=== PATIENT | female | born 1965 | race Caucasian/White ===

== ENCOUNTER → 2023-12-16 13:43 | Outpatient (REF) | payer OTHER, SELFPAY | LOC: WDC 13:43 | PROVIDERS: ATTENDING PHYSICIAN Family Medicine | DX: Z12.31 Encounter for screening mammogram for malignant neoplasm of breast (principal) | CPT/HCPCS: 77063; 77067 ==

== ENCOUNTER 2024-09-09 13:39 | Emergency (ER) | payer OTHER, SELFPAY ==
[2024-09-09 13:39] VITALS: BMI 21.6
[2024-09-09 13:45] VITALS: BP 154/89
[2024-09-09 14:05] LABS: % Basophils 0.9 % (0-2); % Eosinophils 1.8 % (0-6); % Immature Granulocytes 0.3 % (0-0.5); % Monocytes 9.4 % (1.7-9.3); % Neutrophils 51.6 % (42.2-75.2); Absolute Eosinophils 0.1 10^3/uL (0-0.7); Absolute Lymphocytes 1.2 10^3/uL (1.2-3.4); Absolute Monocytes 0.3 10^3/uL (0.1-0.6); Absolute Neutrophils 1.8 10^3/uL (1.4-6.5); Hematocrit 37.3 % (37.0-47.0); Hemoglobin 13.4 g/dL (12.0-16.0); Mean Corp Hgb Conc. 35.9 g/dL (33.0-37.0); Mean Corpuscular Hgb 32.1 pg (27.0-31.0); Mean Corpuscular Volume 89.2 fL (81.0-99.0); Mean Platelet Volume 9.9 fL (7.4-10.4); Nucleated Red Blood Cells % 0 %; Platelet Count 151 10^3/uL (130-400); Red Blood Cell Count 4.18 10^6/uL (4.20-5.40); Red Cell Dist. Width 13.6 % (11.5-14.5); White Blood Cell Count 3.4 10^3/uL (4.8-10.8)
[2024-09-09 14:11] LABS: ALT (SGPT) 298 U/L (0-35); AST (SGOT) 327 U/L (14-36); Albumin 3.8 g/dl (3.5-5.0); Alkaline Phosphatase 130 U/L (38-126); Blood Urea Nitrogen 9 mg/dl (7-17); Calcium 8.8 mg/dl (8.4-10.2); Carbon Dioxide 25 mmol/L (22-30); Chloride 100 mmol/L (98-107); Glucose 121 mg/dl (70-99); Lipase 71 U/L (23-300); Potassium 3.8 mmol/L (3.5-5.1); Sodium 133 mmol/L (135-145); Total Bilirubin 2.4 mg/dl (0.2-1.3); eGFR > 60.00
[2024-09-09 15:41] LABS: Direct Bilirubin 1.3 mg/dl (0.0-0.4)
[2024-09-09 16:00] VITALS: BP 134/78
--- NOTE | 2024-09-09 16:10 | ED.GENMED ---
Addendum entered and electronically signed by Chio Stoner MD 09/09/24 19:51:
[place] screening is positive. Ultrasound shows fatty liver but no obstructive pathology. Hospitalist discussed with GI and given that she is positive for mono with ultrasound showing no acute pathology they do recommend outpatient follow-up with
repeat blood work in about a week. I did update patient with these findings. She is extremely happy as she did not want to be admitted if she did not have to be. She does state that for the past few days her vomiting has been better controlled
after her primary care doctor started her on reflux medicine. She has been tolerating p.o. since she has been here. Her abdominal pain is only very mild and only happens with palpation. Patient would prefer to be discharged. Given that her
symptoms are well-controlled and she does have outpatient follow-up will discharge. Strict return precautions given including worsening nausea vomiting abdominal pain skin changes.
Original Note:
History of Present Illness
General
Chief Complaint: Abnormal Lab Value
Time Seen by Provider: 09/09/24 15:18
History of Present Illness
History of Present Illness:
The patient is a 59-year-old female presenting with nausea, vomiting, and elevated liver enzymes. Symptoms began approximately two months ago. She reports persistent dehydration, difficulty retaining food or fluids, and consistent nausea. Vomiting
occurs frequently, often producing neither bile nor food. Despite these symptoms, the patient experiences a lack of appetite and probable weight loss. She notes intermittent night sweats, which she attributes possibly to menopause. She has a history
of similar gastric issues several years ago, but prior investigations were inconclusive.
The patient and her traveled to [facility] and [facility] during early May, where symptoms began. While abroad, she experienced daily vomiting and diarrhea, in addition to profound fatigue; she frequently feels exhausted upon waking. She
suspects a potential link between her travel and the onset of her symptoms. She does state that she had a stomach bug while she was in [facility]. She denies any bug bites or tick bites. Has been does state that it feels like she had mono but no
testing was done.
The patient reports a family history of her mom who had metastatic to the liver. They were unable to find the primary malignancy. She denies a significant history of liver, pancreas, or stomach problems. She does drink alcohol daily. No history
of pancreatitis
She denies any Tylenol use.
Phy Exam
Physical Exam
Physical Exam:
GENERAL: in no acute distress
HEENT: normocephalic, extraocular movements intact, moist oral mucosa
NECK: normal inspection
RESPIRATORY: no respiratory distress, clear to auscultation bilaterally
CARDIOVASCULAR: regular rate and rhythm
ABDOMEN/: soft, non-distended, tenderness to the right upper quadrant, no rebound or guarding
EXTREMITIES: non-tender, no edema/swelling
NEUROLOGIC: awake and alert, moves all extremities
SKIN: warm
Course
Orders/Labs/Results
Orders:
Orders
09/09/24 13:52
Complete Blood Count/With Diff Urgent
Hepatitis A Antibody, Total Urgent
Comment: ADD ON
Hepatitis B Surface Antibody Urgent
Comment: ADD ON
Hepatitis B Surface Antigen Urgent
Comment: ADD ON
Hepatitis C Antibody Urgent
Comment: ADD ON
Lyme Progressive Urgent
Comment: ADD ON
Monotest Urgent
Comment: ADD ON
09/09/24 13:53
Acetaminophen Urgent
Comment: ADD ON
Comprehensive Metabolic Panel Urgent
Direct Bilirubin Urgent
Comment: ADD ON
Lipase Urgent
09/09/24 15:18
Add On- LAB Urgent
Tests Added?: direct bilirubin
09/09/24 15:59
Add On- LAB Urgent
Tests Added?: mono, lyme, hepatitis panel
US Abdomen Complete/Upper Urgent
Comment:
Reason For Exam: transaminitis, obstructive jaundice
09/09/24 16:00
Add On- LAB Urgent
Tests Added?: tylenol level
Abnormal Lab Results
09/09/24 09/09/24
13:52 13:53
WBC 3.4 L 10^3/uL
(4.8-10.8)
RBC 4.18 L 10^6/uL
(4.20-5.40)
MCH 32.1 H pg
(27.0-31.0)
Monocytes % 9.4 H %
(1.7-9.3)
Sodium 133 L mmol/L
(135-145)
Glucose 121 H mg/dl
(70-99)
Total Bilirubin 2.4 H mg/dl
(0.2-1.3)
Direct Bilirubin 1.3 H mg/dl
(0.0-0.4)
AST 327 H U/L
(14-36)
ALT 298 H U/L
(0-35)
Alkaline Phosphatase 130 H U/L
(38-126)
Acetaminophen < 10 L ug/ml
(10-30)
Monoscreen Positive A
(Negative)
09/09/24 13:52
09/09/24 13:53
Vital Signs
Initial and Last Documented VS:
Initial Vital Signs
Temp Pulse Resp BP Pulse Ox
98.0 F 85 16 154/89 98
09/09/24 13:45 09/09/24 13:45 09/09/24 13:45 09/09/24 13:45 09/09/24 13:45
Last Documented Vital Signs
Temp Pulse Resp BP Pulse Ox
98.0 F 69 18 128/81 99
09/09/24 13:45 09/09/24 18:08 09/09/24 18:08 09/09/24 18:08 09/09/24 18:08
MDM/Problems Addressed
Differential Diagnosis Includes:
Patient is a 59-year-old woman presenting to the emergency department with abnormal LFTs seen on outpatient blood work. Vitals unremarkable exam does show a moderate tenderness. Differential consists of viral hepatitis versus malignancy versus
biliary pathology versus tickborne illness or mono. Blood work obtained prior to evaluation does show transaminitis with obstructive jaundice. Will add on mono Lyme and hepatitis panel. Will proceed with ultrasound.
*Pulse Oximetry
Patient hypoxic: no (98)
*Critical Care Note
Total Time (30-74mins, 75-104mins- exclusive of procedures): Not Applicable
Update Note
Update Note:
Discussed with GI who is in agreement with ultrasound.
Discussed with hospitalist who accepted patient to their service with ultrasound pending.
ED Attending Note
-
Portions of this chart may have been created with voice recognition software.� Occasional wrong word or��sound alike� substitutions may have occurred due to the inherent limitations of voice recognition software.
Discharge Plan
Departure
Patient Disposition: Admit
Date of Disposition: 09/09/24
Time of Disposition: 19:04
Presentation/result/management discussed w/ accepting MD/DO: Hospitalist
Discharge Problem:
Transaminitis
Referrals:
Pamela Miranda PA [Family Provider, Family Practice]
Interventions
Interventions:
*Risk Screen - Suicide Last Done: 09/09/24 13:45
*General Assessment Last Done: 09/09/24 15:43
*Neglect/Abuse Screening Last Done: 09/09/24 13:45
*ED- Fall Risk Assessment Last Done: 09/09/24 15:43
Discharge Date and Time
Print Language: DANISH
[2024-09-09 16:59] LABS: Acetaminophen < 10 ug/ml (10-30)
[2024-09-09 17:38] LABS: Monotest Positive (Negative)
[2024-09-09 18:08] VITALS: BP 128/81
[2024-09-09 18:14] LABS: Hepatitis B Surface Antigen Negative (Negative)
[2024-09-09 20:00] VITALS: BP 122/69
[2024-09-09 21:08] LABS: Hepatitis A Antibody, Total Positive (Negative); Hepatitis B Surface Antibody Negative; Hepatitis C Antibody Negative (Negative)
[2024-09-12 13:45] LABS: Lyme Antibody Screen, EIA Negative (Negative)
== END 2024-09-09 20:05 | disposition home or self-care (01) ==
LOC: EMR 13:39
PROVIDERS: Emergency Medicine; EMERGENCY PHYSICIAN Student in an Organized Health Care Education/Training Program; FAMILY PHYSICIAN Family Medicine
DX: R74.8 Abnormal levels of other serum enzymes (principal); E86.0 Dehydration
CPT/HCPCS: 99284; 76700; 80053; 80143; 82248; 83690; 85025; 86308; 86618; 86706; 86708; 86803; 87340